=== PATIENT | female | born 1990 | race Caucasian/White ===

== ENCOUNTER → 2019-11-01 | Outpatient (CLI) | payer MEDICAID ==
--- NOTE | 2019-11-02 08:01 | US ---
EXAMINATION TYPE: Transabdominal DATE OF EXAM: 11/01/2019 4:13 PM COMPARISON: NONE CLINICAL HISTORY: Z36 CONFIRM DATES. EXAM PERFORMED: Transabdominal (TA) EXAM MEASUREMENTS: GESTATIONAL AGE / DATING Physician Established: Not yet established Dates by LMP: (12 weeks/4 days) EDC: 05/04/20 Dates by First Scan: No previous this is first scan Dates by Current Scan for: ( 13 weeks/4 days) EDC: 06/08/19 MATERNAL ANATOMY Uterus: 13.6 x 9.8 x 11.4cm Right Ovary: not visualized due to overlying bowel and increased uterine size Left Ovary: not visualized due to overlying bowel and increased uterine size Post CDS / Adnexa: wnl GESTATION / SURVEY CRL: 7.3cm (13 weeks/4 days) Yolk Sac (normal less than 6mm): not seen Heart Rate: 149 bpm Rhythm: Normal IUP: Viable IUP Date of LMP: 08/05/19 IMPRESSION: 1. Single intrauterine gestation estimated at 13 weeks 4 days gestation based on current crown-rump l ength. Cardiac activity measures 149 bpm
== END | disposition home or self-care (01) ==
LOC: RADUSWWP 15:54
PROVIDERS: ATTEND Obstetrics & Gynecology
DX: Z36.9 Encounter for antenatal screening, unspecified (principal); Z3A.13 13 weeks gestation of pregnancy
CPT/HCPCS: 76801

== ENCOUNTER → 2019-11-13 | Outpatient (CLI) | payer MEDICAID ==
[2019-11-13 13:22] LABS: HCT 37.4 % (34.0-46.0); HGB 12.7 gm/dL (11.4-16.0); MCV 94.1 fL (80.0-100.0); Mean Platelet Volume 7.8; Platelet Count 262 k/uL (150-450); RBC 3.97 m/uL (3.80-5.40); RDW 12.7 % (11.5-15.5); WBC 8.1 k/uL (3.8-10.6)
[2019-11-13 20:03] LABS: African American GFR (CKD) 141.8 (60.0-200.0); Non-African American GFR(CKD) 122.3 (60.0-200.0)
[2019-11-13 20:26] LABS: Hepatitis B Surface Antigen Non-Reactive (Non-Reactive)
[2019-11-13 22:26] LABS: HIV 2 AB Non-Reactive (Non-Reactive); HIV AB P24 Non-Reactive (Non-Reactive); HIV P24 AG Non-Reactive (Non-Reactive)
[2019-11-15 05:57] LABS: Toxoplasma Antibody (IgG) <3.0 IU/mL (<7.2); Toxoplasma Antibody (IgM) 5.1 AU/mL (<8.0)
== END | disposition home or self-care (01) ==
LOC: LABWHC1 11:21
PROVIDERS: ATTEND Obstetrics & Gynecology
DX: Z34.81 Encounter for supervision of other normal pregnancy, first trimester (principal)
CPT/HCPCS: 36415; 82565; 82947; 85027; 86762; 86777; 86778; 86780; 86850; 86900; 86901; 87340; 87390

== ENCOUNTER → 2019-12-18 | Outpatient (CLI) | payer MEDICAID ==
--- NOTE | 2019-12-18 12:30 | US ---
EXAMINATION TYPE: US OB anatomy transabd; DATE OF EXAM: 12/18/2019 COMPARISON: US 11/01/2019 HISTORY: O36.62XO large for dates TECHNIQUE: Transabdominal (TA) EXAM MEASUREMENTS: GESTATIONAL AGE / DATING Physician Established: (19 weeks/2 days) EDC: 05/11/2020 Dates by LMP: (19 weeks/2 days) EDC: 05/11/2020 Dates by First Scan: 06/08/2020 Dates by Current Scan for: (19 weeks/0 days) EDC: 05/13/2020 SURVEY IUP: Single PLACENTA: fundal/posterior; venous schwartz is noted inferiorly PREVIA: No previa MIKE: 10.6 cm Normal CERVICAL LENGTH (transabdominal: norm > 3.0cm): 5.7 cm BIOMETRY PRESENTATION: Breech LIE: Oblique BPD: 4.2 cm 18 weeks / 6 days HC: 15.8 cm 18 weeks / 5 days AC: 14.0 cm 19 weeks / 3 days FL: 3.1 cm 19 weeks / 5 days ESTIMATED WEIGHT IN GRAMS: 290.8 grams ESTIMATED WEIGHT IN LBS/OZ: 0 lbs. 10 oz. WEIGHT PERCENTAGE BASED ON ESTABLISHED DATE: 52.7 % HC/AC: 1.13 Normal FL/AC: 22.22 Normal HEART RATE: 143 bpm RHYTHM: Normal ANATOMY SEEN (within normal limits): * Lateral Vent (< 1 cm) 0.5 cm * Cisterna Magna (< 1.1 cm) 0.4 cm * Nuchal Fold (< 0.6 cm) 0.5 cm * Cerebellum (varies with age) 1.9 cm Choroid Plexus (bilateral) Midline Falx Cavus Septi Pellucidi Four Chamber Heart Outflow tracts: LVOT/RVOT Stomach Situs Nose / Lips Diaphragm Kidneys (bilateral) Bladder Cord Insert Three Vessel Cord Longitudinal Spine Transverse Spine Arms (bilateral) Legs (bilateral) IMPRESSION: Single, viable IUP,19 weeks/0 days, EDC: 05/13/2020, [id number].
== END | disposition home or self-care (01) ==
LOC: RADUSWWP 09:35
PROVIDERS: ATTEND Obstetrics & Gynecology
DX: O36.62X0 Maternal care for excessive fetal growth, second trimester, not applicable or unspecified (principal); Z3A.19 19 weeks gestation of pregnancy
CPT/HCPCS: 76811

== ENCOUNTER 2020-01-19 13:16 | Emergency (ER) | payer MEDICAID ==
[2020-01-19 13:28] VITALS: BP 109/69; PULSE 100; RESP 16; TEMP 98.6
--- NOTE | 2020-01-19 13:42 | ED ---
General Adult HPI - General Chief complaint: Dental/Oral Stated complaint: Dental Pain Time Seen by Provider: 01/19/20 13:29 Source: patient Mode of arrival: ambulatory Limitations: no limitations - History of Present Illness Initial comments: Dictation was produced using [employer] dictation software. please excuse any grammatical, word or spelling errors. This patient was cared for during a federal and state declared state of emergency secondary to Covid 19 Chief Complaint: 30-year-old seng presents with dental pain. History of Present Illness: 30-year-old female presents today with dental pain. Patient has been having dental pain for the last 2-3 days. It is involving her first molar mandibular tooth. She has had filling to that tooth in the past. Patient states that pain radiates to her left jaw area. She was urged to come to the emergency department by friends for possibly needing antibiotics. He is 24 weeks . She is having a normal . She does have [employer] follow-up. Patient does have a dentist that she can follow-up with. She has been taking Tylenol with adequate pain relief. The ROS documented in this emergency department record has been reviewed and confirmed by me. Those systems with pertinent positive or negative responses have been documented in the HPI. All other systems are other negative and/or noncontributory. PHYSICAL EXAM: General Impression: Alert and oriented x3, not in acute distress HEENT: Normocephalic atraumatic, extra-ocular movements intact, pupils equal and reactive to light bilaterally, mucous membranes moist. Oral: Tooth #46 with metallic filling, no gingival fluctuance or erythema Cardiovascular: Heart regular rate and rhythm Chest: Able to complete full sentences, no retractions, no tachypnea Abdomen: abdomen soft, non-tender, non-distended, no organomegaly Musculoskeletal: Pulses present and equal in all extremities, no peripheral edema Motor: no focal deficits noted Neurological: CN II-XII grossly intact, no focal motor or sensory deficits noted Skin: Intact with no visualized rashes Psych: Normal affect and mood ED course: 30 Year old seng presents with dental pain to the first molar mandibular tooth on the right side. Signs upon arrival are within acceptable limits. Patient is allegedly 24 weeks . Analgesic options were d iscussed with patient and she is agreeable for continue to take Tylenol. She is concerned that she has dental pain secondary to a dental infection. Patient given prescription for Augmentin. She is advised to follow-up with her dentist as soon as possible. She will make an appointment for next week. - Related Data Previous Rx's Medication Instructions Recorded Amoxic-Pot Clav 875-125Mg 1 tab PO BID 10 Days #20 tab 01/19/20 [Augmentin 875-125] Allergies Allergy/AdvReac Type Severity Reaction Status Date / Time No Known Allergies Allergy Verified 01/19/20 13:28 Review of Systems ROS Statement: Those systems with pertinent positive or pertinent negative responses have been documented in the HPI. ROS Other: All systems not noted in ROS Statement are negative. Past Medical History Past Medical History: No Reported History History of Any Multi-Drug Resistant Organisms: None Reported Past Surgical History: Orthopedic Surgery Past Psychological History: No Psychological Hx Reported Smoking Status: Never smoker Past Alcohol Use History: None Reported Past Drug Use History: None Reported General Exam Limitations: no limitations Course Vital Signs 01/19/20 13:25 Temperature 98.6 F Pulse Rate 100 Respiratory 16 Rate Blood Pressure 109/69 O2 Sat by Pulse 100 Oximetry Disposition Clinical Impression: Pain, dental Disposition: HOME SELF-CARE Condition: Good Instructions (If sedation given, give patient instructions): Toothache (ED) Additional Instructions: Follow-up with dentist as soon as possible. Prescriptions: Amoxic-Pot Clav 875-125Mg [Augmentin 875-125] 1 tab PO BID 10 Days #20 tab Is patient prescribed a controlled substance at d/c from ED?: No Time of Disposition: 13:42
== END 2020-01-19 14:00 | disposition home or self-care (01) ==
LOC: EC 13:16
DX: O99.612 Diseases of the digestive system complicating pregnancy, second trimester (principal); K08.89 Other specified disorders of teeth and supporting structures; Z3A.24 24 weeks gestation of pregnancy
CPT/HCPCS: 99282

== ENCOUNTER → 2020-02-13 | Outpatient (CLI) | payer MEDICAID ==
[2020-02-13 11:03] LABS: HCT 33.3 % (34.0-46.0); MCH 32.1 pg (25.0-35.0); MCV 97.3 fL (80.0-100.0); Mean Platelet Volume 7.4; Platelet Count 254 k/uL (150-450); RBC 3.43 m/uL (3.80-5.40); WBC 9.5 k/uL (3.8-10.6)
== END | disposition home or self-care (01) ==
LOC: LABWHC1 09:06
PROVIDERS: ATTEND Obstetrics & Gynecology
DX: Z34.82 Encounter for supervision of other normal pregnancy, second trimester (principal)
CPT/HCPCS: 36415; 82950; 85027; 86850

== ENCOUNTER → 2020-02-19 | Outpatient (CLI) | payer MEDICAID ==
[2020-02-19 12:42] LABS: Glucose 3 Hour, Gest 105 mg/dL
== END | disposition home or self-care (01) ==
LOC: LABWHC1 08:06
PROVIDERS: ATTEND Obstetrics & Gynecology
DX: O99.810 Abnormal glucose complicating pregnancy (principal)
CPT/HCPCS: 36415; 82951; 82952

== ENCOUNTER 2020-05-11 08:23 | Inpatient (IN) | payer MEDICAID ==
[2020-05-11] MEDS ORDERED: ROPIVACAINE 100 MG, fentaNYL (PF). 200 MCG in SODIUM CHLORIDE 0.9% 76 ML EPIDURAL ONE (09:26)
[2020-05-11] MEDS ORDERED: TERBUTALINE 1 MG/ML VIAL SQ PRN (09:30)
[2020-05-11] MEDS ORDERED: CARBOPROST TROMETHAMINE 250 MCG/ML 1 ML AMP IM PRN (09:30)
[2020-05-11] MEDS ORDERED: OXYTOCIN 30 UNITS/500 ML NS 30 UNIT in SALINE 1 500ML.BAG IV SCH (09:30)
[2020-05-11] MEDS ORDERED: METHYLERGONOVINE 0.2 MG/ML 1 ML AMP IM PRN (09:30)
[2020-05-11] MEDS ORDERED: LIDOCAINE 0.5% (PF) 5 MG/ML (50 ML SDV) SQ PRN (09:30)
[2020-05-11] MEDS ORDERED: OXYTOCIN 10 UNIT/ML 1 ML VIAL IM PRN (09:30)
--- NOTE | 2020-05-11 09:36 | P.HPOB ---
History of Present Illness H&P Date: 05/11/20 Chief Complaint: Leaking of fluid, contractions This patient is a pleasant 30-year-old 3 para 1 female estimated date of confinement 05/11/2020 estimated gestational age 40-0/7 weeks presents to labor and delivery with complaints of leaking of fluid this morning and contractions. Patient's care is per Dr. Arias. It is complicated by a recent positive COVID respiratory culture. Patient states she was having some respiratory symptoms and fever middle the last week and was tested at work and found to have a positive Covid test. Patient is still having some low-grade temps but otherwise is feeling better. 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 Review of Systems Respiratory: Reports as per HPI Genitourinary: Reports Menstruation: Reports amenorrhea Past Medical History Additional Past Medical History / Comment(s): Positive COVID Respiratory screen on May 05 History of Any Multi-Drug Resistant Organisms: None Reported Past Surgical History: Orthopedic Surgery Past Anesthesia/Blood Transfusion Reactions: No Reported Reaction Past Psychological History: No Psychological Hx Reported Smoking Status: Never smoker Past Alcohol Use History: None Reported Past Drug Use History: None Reported Medications and Allergies Home Medications Medication Instructions Recorded Confirmed Type Amoxic-Pot Clav 875-125Mg 1 tab PO BID 10 Days #20 tab 01/19/20 Rx [Augmentin 875-125] Allergies Allergy/AdvReac Type Severity Reaction Status Date / Time No Known Allergies Allergy Verified 01/19/20 13:28 Exam - OBG Physical Exam Abdomen: bowel sounds normal, no diffuse tenderness, no bruit present, no guarding noted, no hepatomegaly, no splenomegaly, no mass Vulva: both: normal Vagina: normal moisture, no discharge Cervix: Cervix shows a to be 5 cm dilated with gross rupture membranes. Cervix: no lesion, no discharge Uterus: enlarged Results blood work shows she is O-, rubella immune, RPR nonreactive, HIV is nonreactive, group B strep was negative, hepatitis B was negative, most recent ultrasound showed the baby 6 pounds which is the 69th percentile. Patient did receive RhoGAM on February 18. Assessment and Plan Assessment: This is a pleasant 30-year-old 3 para 1 female 40-0/7 weeks gestation with spontaneous rupture membranes in early labor. Patient also has had a recent positive respiratory Covid culture. Plan at this time is anticipate vaginal delivery. Respiratory precautions per protocol. I also alerted the sole inker due to the recent positive Covid screen. (1) 40 weeks gestation of Current Visit: Yes Status: Acute Code(s): Z3A.40 - 40 WEEKS GESTATION OF SNOMED Code(s): 75706736 (2) Spontaneous rupture of amniotic membranes Current Visit: Yes Status: Acute Code(s): TWB4005 - SNOMED Code(s): 138010224 (3) Normal labor Current Visit: Yes Status: Acute Code(s): O80 - ENCOUNTER FOR FULL-TERM UNCOMPLICATED DELIVERY; Z37.9 - OUTCOME OF DELIVERY, UNSPECIFIED SNOMED Code(s): 76942408 (4) COVID-19 affecting in third trimester Current Visit: Yes Status: Acute Code(s): O98.513 - OTHER VIRAL DISEASES COMPLICATING , THIRD TRIMESTER; U07.1 - COVID-19 SNOMED Code(s): 396909384
[2020-05-11 09:41] LABS: Basophils # (A) 0.1 k/uL (0-0.2); Basophils % (A) 1 %; Eosinophils # (A) 0.1 k/uL (0-0.7); Eosinophils % (A) 1 %; HCT 33.3 % (34.0-46.0); Lymphocytes # (A) 1.5 k/uL (1.0-4.8); Lymphocytes % (A) 15 %; MCH 28.9 pg (25.0-35.0); MCHC 33.1 g/dL (31.0-37.0); MCV 87.2 fL (80.0-100.0); Mean Platelet Volume 7.6; Monocytes # (A) 0.5 k/uL (0-1.0); Monocytes % (A) 5 %; Neutrophils # (A) 7.7 k/uL (1.3-7.7); Neutrophils % (A) 77 %; Platelet Count 287 k/uL (150-450); RBC 3.82 m/uL (3.80-5.40); RDW 13.3 % (11.5-15.5)
[2020-05-11] MEDS: LACTATED RINGERS 1,000 ML IV SCH ×2 (10:50→10:51)
[2020-05-11] MEDS ORDERED: AMPICILLIN 2,000 MG in SODIUM CHLORIDE 0.9% 100 ML IVPB STA (11:11)
[2020-05-11] MEDS ORDERED: ACETAMINOPHEN IV (For NPO) 1,000 MG in EMPTY BAG 1 BAG IVPB STA (11:38)
--- NOTE | 2020-05-11 11:41 | P.PN ---
Progress Note - Text Progress Note Date: 05/11/20 Patient is 7-8cm dilated. FHTs are reassuring but mild tachycardia with good variability. Has developed a low grade temp so I am going to treat with IV Ampicillin and IV Tylenol. Continue to watch closely and anticipate vaginal delivery at this time.
[2020-05-11] MEDS ORDERED: HYDROCORTISONE 2.5% RECTAL CREAM 30 GM TUBE RECTAL PRN (13:33)
[2020-05-11] MEDS ORDERED: diphenhydrAMINE 25 MG CAP PO PRN (13:33)
[2020-05-11] MEDS ORDERED: LANOLIN CREAM 5 GM TUBE TOPICAL PRN (13:33)
[2020-05-11] MEDS ORDERED: BENZOCAINE/MENTHOL SPRAY 1 GM/SPRAY AEROSOL TOPICAL PRN (13:33)
[2020-05-11] MEDS ORDERED: SIMETHICONE 80 MG CHEWABLE PO PRN (13:33)
[2020-05-11] MEDS ORDERED: bisacodyL 10 MG SUPP RECTAL PRN (13:33)
[2020-05-11] MEDS ORDERED: ZOLPIDEM 5 MG TAB PO PRN (13:33)
[2020-05-11] MEDS ORDERED: diphenhydrAMINE 50 MG/ML 1 ML VIAL IVP PRN (13:33)
[2020-05-11] MEDS ORDERED: Rhogam IMMUNE GLOBULIN 1,500 UNIT/1 ML IM ONE (13:33)
[2020-05-11] MEDS ORDERED: OXYTOCIN 20 UNITS/1000 ML NS 1,000 ML IV SCH (13:45)
--- NOTE | 2020-05-11 13:46 | P.PROBDLV ---
Vaginal Delivery Note - . Vaginal Delivery Note: Normal female Apgars 7 and 9 delivery time is 1311 hrs. Please see dictated H&P for intimate details of this patient's admission. Brief summary this is a pleasant 30-year-old 3 para 1 female estimated gestational age 40-0/7 weeks who presented this morning with complaints of gush of fluid and contractions. On admission patient's cervix is 5 cm dilated. Patient's heart tones are category 1 although she does have an elevated a slightly elevated baseline. Patient's labor progresses, she does develop an intrapartum low-grade temperature. At that time I give her 1 dose of ampicillin and also IV Tylenol. Patient gets an epidural for pain control and does continue to progress quickly. Patient gets to complete and pushes a proximally 3 times and pushes the head to the perineum. Posterior perineum is supported and we have controlled delivery of the 's head over the intact perineum. Infant's presentation is straight occiput anterior. Mouth and nares are bulb suctioned. There is no evidence of nuchal cord. With gentle downward traction and maternal effort we have delivery the anterior and posterior shoulder and rest this 's body. This is a vigorous viable female infant Apgars are 7 and 9 delivery time is 1311 hrs. grossly appears normal and weighs 9 lbs. 10 oz./4360 g. Infant is laid on the mother's abdomen and after the cord is done pulsated is doubly clamped and cut. It appears to be trivascul ar. Cord blood is obtained for Rh status. Placenta spontaneously delivered intact. Estimated blood loss is 100 mL. Inspection of perineum shows a first- degree posterior laceration which is repaired with 3-0 Vicryl in the usual fashion. Excellent reapproximation is noted. All counts correct 3. There are no complications. Infant and mother stable birthing suite.
[2020-05-11] MEDS: ACETAMINOPHEN TAB 325 MG TAB PO PRN (16:37)
[2020-05-11] MEDS: SENNOSIDES-DOCUSATE SODIUM 1 EACH TAB PO SCH (20:03)
[2020-05-11] MEDS: IBUPROFEN 600 MG TAB PO PRN (20:11)
[2020-05-12] MEDS: ACETAMINOPHEN TAB 325 MG TAB PO PRN (02:13)
[2020-05-12 06:25] LABS: Basophils # (A) 0.1 k/uL (0-0.2); Basophils % (A) 1 %; Eosinophils % (A) 0 %; HCT 31.6 % (34.0-46.0); HGB 10.5 gm/dL (11.4-16.0); Hypochromasia Slight; Lymphocytes # (A) 1.7 k/uL (1.0-4.8); Lymphocytes % (A) 15 %; MCH 29.4 pg (25.0-35.0); MCHC 33.3 g/dL (31.0-37.0); MCV 88.3 fL (80.0-100.0); Mean Platelet Volume 7.5; Monocytes # (A) 0.6 k/uL (0-1.0); Monocytes % (A) 5 %; Neutrophils # (A) 8.7 k/uL (1.3-7.7); Neutrophils % (A) 78 %; Platelet Count 234 k/uL (150-450); RBC 3.58 m/uL (3.80-5.40); RDW 13.2 % (11.5-15.5); WBC 11.2 k/uL (3.8-10.6)
[2020-05-12] MEDS: IBUPROFEN 600 MG TAB PO PRN (07:28)
[2020-05-12 07:40] VITALS: BP 108/61; PULSE 78; RESP 15; TEMP 98.1
[2020-05-12] MEDS: SENNOSIDES-DOCUSATE SODIUM 1 EACH TAB PO SCH (07:42)
--- NOTE | 2020-05-12 17:14 | P.DS ---
Providers Date of admission: 05/11/20 08:36 Expected date of discharge: 05/12/20 Attending physician: Reilly Austin - Discharge Diagnosis(es) (1) Normal vaginal delivery Status: Acute Hospital Course: Pt presented in labor. She underwent a normal vaginal delivery. course was uncomplicated. She is discharged home day #1 in stable condition to follow-up with me in 6 weeks. Plan - Discharge Summary New Discharge Prescriptions: No Action No Known Home Medications Discharge Medication List No Known Home Medications 05/11/20 [History] Discharge Disposition: HOME SELF-CARE
== END 2020-05-12 16:07 | disposition home or self-care (01) | DRG 805 ==
LOC: FBPOP 08:23 → 4FBP 08:36
PROVIDERS: ADMIT Obstetrics & Gynecology; ATTEND Obstetrics & Gynecology
PROC: 00HU33Z Insertion of Infusion Device into Spinal Canal, Percutaneous Approach (ICD-10-PCS; principal; 2020-05-11)
PROC: 10E0XZZ Delivery of Products of Conception, External Approach (ICD-10-PCS; principal; 2020-05-11)
PROC: 3E0R3BZ Introduction of Anesthetic Agent into Spinal Canal, Percutaneous Approach (ICD-10-PCS; principal; 2020-05-11)
PROC: 0HQ9XZZ Repair Perineum Skin, External Approach (ICD-10-PCS; principal; 2020-05-11)
PROC: 3E0234Z Introduction of Serum, Toxoid and Vaccine into Muscle, Percutaneous Approach (ICD-10-PCS; 2020-05-11)
DX: O98.52 Other viral diseases complicating childbirth (principal); U07.1 COVID-19; Z37.0 Single live birth; O98.32 Other infections with a predominantly sexual mode of transmission complicating childbirth; A60.00 Herpesviral infection of urogenital system, unspecified; O70.0 First degree perineal laceration during delivery; O26.893 Other specified pregnancy related conditions, third trimester; Z67.41 Type O blood, Rh negative; Z3A.40 40 weeks gestation of pregnancy; Z87.39 Personal history of other diseases of the musculoskeletal system and connective tissue; Z98.890 Other specified postprocedural states
CPT/HCPCS: 85025; 86850; 86870; 86880; 86900; 86901; 88307

== ENCOUNTER 2022-01-17 11:04 | Emergency (ER) | payer MEDICAID, OTHER ==
[2022-01-17 11:23] LABS: Glucose,Whole Blood 85 mg/dL (70-110)
[2022-01-17] MEDS ORDERED: LIDOCAINE 1% INJ 10MG/ML (20 ML MDV) SQ ONE (11:44)
[2022-01-17] MEDS ORDERED: DIPH,PERTUS(ACELL)TETVAC-LF 0.5 ML VIAL IM ONE (11:45)
[2022-01-17] MEDS ORDERED: ACETAMINOPHEN TAB 500 MG TAB PO STA (11:48)
[2022-01-17] MEDS ORDERED: SODIUM CHLORIDE 0.9% 1,000 ML IV STA (11:48)
[2022-01-17 11:59] LABS: Basophils % (A) 0 %; Eosinophils # (A) 0.1 k/uL (0-0.7); Eosinophils % (A) 1 %; HCT 36.3 % (34.0-46.0); HGB 12.2 gm/dL (11.4-16.0); Lymphocytes % (A) 23 %; MCH 30.6 pg (25.0-35.0); MCHC 33.6 g/dL (31.0-37.0); Mean Platelet Volume 7.7; Monocytes # (A) 0.4 k/uL (0-1.0); Monocytes % (A) 5 %; Neutrophils # (A) 5.9 k/uL (1.3-7.7); Neutrophils % (A) 69 %; Platelet Count 278 k/uL (150-450); RBC 3.99 m/uL (3.80-5.40); WBC 8.6 k/uL (3.8-10.6)
--- NOTE | 2022-01-17 12:04 | XR ---
EXAMINATION TYPE: XR chest 2V DATE OF EXAM: 01/17/2022 12:01 PM COMPARISON: none TECHNIQUE: XR chest 2V Frontal and lateral views of the chest. CLINICAL INDICATION:Female, 32 years old with history of syncope; FINDINGS: Lungs/Pleura: There is no evidence of pleural effusion, focal consolidation, or pneumothorax. Pulmonary vascularity: Unremarkable. Heart/mediastinum: Cardiomediastinal silhouette is unremarkable. Musculoskeletal: No acute osseous pathology. IMPRESSION: No acute cardiopulmonary disease/process.
[2022-01-17 12:10] LABS: ALT 11 U/L (4-34); AST 21 U/L (14-36); African American GFR (CKD) >90 (>60 ml/min/1.73 sqM); Albumin 3.5 g/dL (3.5-5.0); Alkaline Phosphatase 51 U/L (38-126); Anion Gap 8 mmol/L; Blood Urea Nitrogen 8 mg/dL (7-17); Calcium 8.6 mg/dL (8.4-10.2); Carbon Dioxide 21 mmol/L (22-30); Chloride 104 mmol/L (98-107); Glucose 94 mg/dL (74-99); Magnesium 1.6 mg/dL (1.6-2.3); Non-African American GFR(CKD) >90 (>60 ml/min/1.73 sqM); Potassium 4.3 mmol/L (3.5-5.1); Sodium 133 mmol/L (137-145); Total Bilirubin 0.3 mg/dL (0.2-1.3); Total Protein 6.1 g/dL (6.3-8.2)
--- NOTE | 2022-01-17 12:32 | CT ---
EXAMINATION TYPE: CT brain cspine wo con CT DLP: 1303.3 mGycm, Automated exposure control for dose reduction was used. DATE OF EXAM: 01/17/2022 12:19 PM COMPARISON: None.. CLINICAL INDICATION:Female, 32 years old with history of syncope; fall TECHNIQUE: Brain: Multiple axial CT images of the brain were obtained without IV contrast. Cspine: Axial CT images from the skull base to the inferior aspect of T2 we obtained without intraven ous contrast. Coronal and sagittal reformatted images were also reviewed. FINDINGS: Brain: Extra-axial spaces: No abnormal extra-axial fluid collections. Ventricular system: Within normal limits Cerebral parenchyma: No acute intraparenchymal hemorrhage or mass effect. The galo-white junction is well differentiated. Cerebellum: Unremarkable. Mass effect: No evidence of midline shift. Intracranial vasculature: unremarkable Soft tissues: Normal. Calvarium/osseous structures: No depressed skull fracture. Paranasal sinuses and mastoid air cells: Clear. Visualized orbits: Orbital contents are intact. Cervical spine: Fracture: None. Osseous structures: Unremarkable Vertebral alignment: Within normal limits. Spinal canal/Neural Foramina: No evidence of significant spinal canal narrowing. No evidence for sign ificant neural foraminal stenosis. Neck soft tissues: Prevertebral soft tissues are within normal limits. Other: The airway is patent. The lung apices are clear. IMPRESSION: 1. No acute intracranial process. 2. No evidence of cervical spine fracture.
[2022-01-17 13:06] LABS: Appearance,Urine Cloudy (Clear); Bilirubin,Urine Negative (Negative); Blood,Urine Negative (Negative); Color,Urine Yellow; Glucose,Urine (UA) Negative (Negative); Ketones,Urine Negative (Negative); Leukocyte Esterase,Urine Moderate (Negative); Mucus,Urine Occasional /hpf; Nitrite,Urine Negative (Negative); Protein,Urine Trace (Negative); RBC,Urine 2 /hpf (0-5); Specific Gravity,Urine 1.017 (1.001-1.035); Squamous Epithelial Cell,Urine 17 /hpf (0-4); Urobilinogen,Urine <2.0 mg/dL (<2.0); WBC,Urine 6 /hpf (0-5)
--- NOTE | 2022-01-17 13:29 | US ---
EXAMINATION TYPE: US OB >= 14 wk fetus DATE OF EXAM: 01/17/2022 COMPARISON: US 2021 CLINICAL HISTORY: syncope TECHNIQUE: Transabdominal (TA) GESTATIONAL AGE / DATING Physician Established: (17 weeks/2 days) EDC: 06/25/2022 Dates by LMP: LMP unknown Dates by First Scan: (17 weeks/2 days) EDC: 06/25/2022 Dates by Current Scan: (17 weeks/0 days) EDC: 06/27/2022 SURVEY IUP: Single PLACENTA: Fundal/Posterior PREVIA: No Previa MIKE: 10.1 cm Normal CERVICAL LENGTH (transabdominal: norm > 3.0cm): 3.5 cm BIOMETRY PRESENTATION: Vertex LIE: Longitudinal BPD: 3.3 cm 16 weeks / 3 days HC: 12.9 cm 16 weeks / 5 days AC: 10.4 cm 16 weeks / 3 days FL: 2.7 cm 18 weeks / 2 days ESTIMATED WEIGHT IN GRAMS: 184 grams ESTIMATED WEIGHT IN LBS/OZ: 0 lbs. 6 oz. WEIGHT PERCENTAGE BASED ON ESTABLISHED DATES: 36% HC/AC: 1.24 Normal FL/AC: 26% HEART RATE: 156 bpm RHYTHM: Normal IMPRESSION: Single live intrauterine with ultrasound age of 17 weeks 0 days. Additional information as described above.
--- NOTE | 2022-01-17 13:38 | ED ---
Fall HPI - General Chief Complaint: Fall Stated Complaint: fall-syncope Time Seen by Provider: 01/17/22 11:35 Source: patient, EMS Mode of arrival: EMS - History of Present Illness Initial Comments: Patient is a 32-year-old female at 17 weeks with a past medical history of hypoglycemia who presents to the emergency department with a chief complaint of syncopal episode. Patient was at [employer] today with her friends when she began to feel lightheaded with headache. Patient had syncopal episode and fell onto her chin in the parking lot. The fall was witnessed by patient's friends. She was unconscious for about 45 seconds. Does not use blood thinners. No history of syncope, seizures, or arrhythmia. Currently patient endorses moderate headache in the front of her head as well as chin pain from fall. Does note that she has been having frequent headaches this week to arrange for moderate to severe. No history of migraines. Denies other injury. Denies fever, chills, upper respiratory symptoms, visual changes, lightheadedness, dizziness, palpitation, chest pain, shortness of breath, abdominal pain, nausea, vomiting, burning with urination, vaginal bleeding, vaginal discharge. Patient follows with Dr. Arias. Reports having previous ultrasound for this which showed a viable IUP. - Related Data Home Medications Medication Instructions Recorded Confirmed No Known Home Medications 05/11/20 05/11/20 Allergies Allergy/AdvReac Type Severity Reaction Status Date / Time latex Allergy Rash/Hives Verified 01/17/22 11:13 Review of Systems ROS Statement: Those systems with pertinent positive or pertinent negative responses have been documented in the HPI. ROS Other: All systems not noted in ROS Statement are negative. Past Medical History Past Medical History: No Reported History Additional Past Medical History / Comment(s): Positive COVID Respiratory screen on May 05 History of Any Multi-Drug Resistant Organisms: None Reported Past Surgical History: Orthopedic Surgery Past Anesthesia/Blood Transfusion Reactions: No Reported Reaction Past Psychological History: Anxiety Smoking Status: Never smoker Past Alcohol Use History: None Reported Past Drug Use History: None Reported - Past Family History Mother Family Medical History: Cancer General Exam Limitations: no limitations Head exam: Present: atraumatic, normocephalic. Absent: normal inspection (2 cm v shaped laceration under chin) Eye exam: Present: normal appearance, PERRL, EOMI. Absent: scleral icterus, conjunctival injection, periorbital swelling Neck exam: Present: normal inspection, tenderness. Absent: meningismus, lymphadenopathy Respiratory exam: Present: normal lung sounds bilaterally. Absent: respiratory distress, wheezes, rales, rhonchi, stridor GI/Abdominal exam: Present: soft, normal bowel sounds. Absent: distended, tenderness, guarding, rebound, rigid Neurological exam: Present: alert, oriented X3, CN II-XII intact Psychiatric exam: Present: normal affect, normal mood Skin exam: Present: warm, dry, intact, normal color. Absent: rash Course Vital Signs 01/17/22 01/17/22 01/17/22 11:07 12:29 12:31 Temperature 98.4 F Pulse Rate 82 Pulse Rate [ 97 100 Right Pulse Oximetery] Respiratory 16 16 17 Rate Blood Pressure 99/66 Blood Pressure 97/63 [Left Arm Sitting] Blood Pressure [Left Arm Standing] Blood Pressure 96/62 [Left Arm Supine] O2 Sat by Pulse 100 100 99 Oximetry 01/17/22 01/17/22 01/17/22 12:32 12:46 13:00 Temperature Pulse Rate 99 100 Pulse Rate [ 108 H Right Pulse Oximetery] Respiratory 16 16 16 Rate Blood Pressure 103/55 98/66 Blood Pressure [Left Arm Sitting] Blood Pressure 90/62 [Left Arm Standing] Blood Pressure [Left Arm Supine] O2 Sat by Pulse 100 100 100 Oximetry 01/17/22 01/17/22 14:00 15:09 Temperature 98.2 F Pulse Rate 105 H 98 Pulse Rate [ Right Pulse Oximetery] Respiratory 17 16 Rate Blood Pressure 108/71 103/64 Blood Pressure [Left Arm Sitting] Blood Pressure [Left Arm Standing] Blood Pressure [Left Arm Supine] O2 Sat by Pulse 100 100 Oximetry Procedures - Laceration Laceration #1 Consent Obtained: verbal consent Site: other (chin) Description: flap Depth: simple, single layer Anesthesia Technique: local infiltration Pre-repair: wound explored, irrigated extensively Type of Sutures: nylon Size of Sutures: 5-0 Number of Sutures: 3 Technique: simple, interrupted Patient Tolerated Procedure: well, no complications Medical Decision Making - Medical Decision Making This is a female who presents for evaluation of syncopal episode. Patient well-appearing and in no apparent distress. Patient's blood pressure tends to run low normally but is a little lower than her normal at 90/62. Orthostatics negative. Patient and I discussed risks versus benefits of radiation exposure during in detail. After careful consideration decided to rule out aneurysm and bleed with CT angiogram. This was negative for acute process. We also obtained chest x-ray to explore etiologies syncopal episode which was negative for acute process. EKG shows sinus rhythm without ST segment or T-wave abnormality. ultrasound shows single live IUP. [id number] glucose is 85 on arrival however patient was eating ben crackers and fever. Laboratory studies obtained. Glucose 94. Troponin is within normal limits. Other laboratory studies are unremarkable. Patient given Tylenol with improvement of headache. Results discussed with patient. This time there are no diagnostic studies to explain patient's symptoms. Possibly low blood sugar. Laceration approximately with 3 sutures. Wound care instruction provided in detail. Patient will be discharged with strict return parameters. Dr. Phelan my attending. - Lab Data Result diagrams: 01/17/22 11:49 01/17/22 11:49 Lab Results 01/17/22 01/17/22 01/17/22 Range/Units 11:22 11:49 11:49 WBC 8.6 (3.8-10.6) k/uL RBC 3.99 (3.80-5.40) m/uL Hgb 12.2 (11.4-16.0) gm/dL Hct 36.3 (34.0-46.0) % MCV 91.0 (80.0-100.0) fL MCH 30.6 (25.0-35.0) pg MCHC 33.6 (31.0-37.0) g/dL RDW 13.0 (11.5-15.5) % Plt Count 278 (150-450) k/uL MPV 7.7 Neutrophils % 69 % Lymphocytes % 23 % Monocytes % 5 % Eosinophils % 1 % Basophils % 0 % Neutrophils # 5.9 (1.3-7.7) k/uL Lymphocytes # 2.0 (1.0-4.8) k/uL Monocytes # 0.4 (0-1.0) k/uL Eosinophils # 0.1 (0-0.7) k/uL Basophils # 0.0 (0-0.2) k/uL Sodium 133 L (137-145) mmol/L Potassium 4.3 (3.5-5.1) mmol/L Chloride 104 (98-107) mmol/L Carbon Dioxide 21 L (22-30) mmol/L Anion Gap 8 mmol/L BUN 8 (7-17) mg/dL Creatinine 0.53 (0.52-1.04) mg/dL Est GFR (CKD-EPI)AfAm >90 (>60 ml/min/1.73 sqM) Est GFR (CKD-EPI)NonAf >90 (>60 ml/min/1.73 sqM) Glucose 94 (74-99) mg/dL POC Glucose (mg/dL) 85 (70-110) mg/dL POC Glu Almond Roaster ID Monica Linda Calcium 8.6 (8.4-10.2) mg/dL Magnesium 1.6 (1.6-2.3) mg/dL Total Bilirubin 0.3 (0.2-1.3) mg/dL AST 21 (14-36) U/L ALT 11 (4-34) U/L Alkaline Phosphatase 51 (38-126) U/L Troponin I (0.000-0.034) ng/mL Total Protein 6.1 L (6.3-8.2) g/dL Albumin 3.5 (3.5-5.0) g/dL Urine Color Urine Appearance (Clear) Urine pH (5.0-8.0) Ur Specific [place] (1.001-1.035) Urine Protein (Negative) Urine Glucose (UA) (Negative) Urine Ketones (Negative) Urine Blood (Negative) Urine Nitrite (Negative) Urine Bilirubin (Negative) Urine Urobilinogen (<2.0) mg/dL Ur Leukocyte Esterase (Negative) Urine RBC (0-5) /hpf Urine WBC (0-5) /hpf Ur Squamous Epith Cells (0-4) /hpf Urine Mucus (None) /hpf 01/17/22 01/17/22 Range/Units 11:49 12:45 WBC (3.8-10.6) k/uL RBC (3.80-5.40) m/uL Hgb (11.4-16.0) gm/dL Hct (34.0-46.0) % MCV (80.0-100.0) fL MCH (25.0-35.0) pg MCHC (31.0-37.0) g/dL RDW (11.5-15.5) % Plt Count (150-450) k/uL MPV Neutrophils % % Lymphocytes % % Monocytes % % Eosinophils % % Basophils % % Neutrophils # (1.3-7.7) k/uL Lymphocytes # (1.0-4.8) k/uL Monocytes # (0-1.0) k/uL Eosinophils # (0-0.7) k/uL Basophils # (0-0.2) k/uL Sodium (137-145) mmol/L Potassium (3.5-5.1) mmol/L Chloride (98-107) mmol/L Carbon Dioxide (22-30) mmol/L Anion Gap mmol/L BUN (7-17) mg/dL Creatinine (0.52-1.04) mg/dL Est GFR (CKD-EPI)AfAm (>60 ml/min/1.73 sqM) Est GFR (CKD-EPI)NonAf (>60 ml/min/1.73 sqM) Glucose (74-99) mg/dL POC Glucose (mg/dL) (70-110) mg/dL POC Glu Almond Roaster ID Calcium (8.4-10.2) mg/dL Magnesium (1.6-2.3) mg/dL Total Bilirubin (0.2-1.3) mg/dL AST (14-36) U/L ALT (4-34) U/L Alkaline Phosphatase (38-126) U/L Troponin I <0.012 (0.000-0.034) ng/mL Total Protein (6.3-8.2) g/dL Albumin (3.5-5.0) g/dL Urine Color Yellow Urine Appearance Cloudy H (Clear) Urine pH 7.0 (5.0-8.0) Ur Specific [place] 1.017 (1.001-1.035) Urine Protein Trace H (Negative) Urine Glucose (UA) Negative (Negative) Urine Ketones Negative (Negative) Urine Blood Negative (Negative) Urine Nitrite Negative (Negative) Urine Bilirubin Negative (Negative) Urine Urobilinogen <2.0 (<2.0) mg/dL Ur Leukocyte Esterase Moderate H (Negative) Urine RBC 2 (0-5) /hpf Urine WBC 6 H (0-5) /hpf Ur Squamous Epith Cells 17 H (0-4) /hpf Urine Mucus Occasional H (None) /hpf Disposition Clinical Impression: Syncope and collapse, Laceration, Headache, Lightheadedness Disposition: HOME SELF-CARE Condition: Good Instructions (If sedation given, give patient instructions): Care For Your Stitches (DC), Laceration (ED) Additional Instructions: Please return for suture removal in 5 days. Leave wound uncovered. Keep wound clean and dry. Wash with a mild soap. Take Tylenol for pain. Follow up with primary care provider. Report back to the emergency department if you experience new, concerning, or worsening symptoms. Is patient prescribed a controlled substance at d/c from ED?: No Referrals: Olegario Ramirez DO [Primary Care Provider] - 1-2 days Time of Disposition: 13:38
[2022-01-17] MEDS ORDERED: RX INFO: IV CONTRAST WAS GIVEN 1 EACH MISC MISCELLANE PRN (13:42)
--- NOTE | 2022-01-17 15:12 | CT ---
EXAMINATION TYPE: CT angio COW [place] DATE OF EXAM: 01/17/2022 COMPARISON: None HISTORY: headache, no head injury CT DLP: 681.6 mGycm Automated exposure control for dose reduction was used. CONTRAST: Performed with IV Contrast, patient injected with 100 mL of Isovue 370. Images obtained from the skull base to the vertex of the brain with the IV contrast. There are Three- D postprocessed images. There is arterial flow in the anterior middle and posterior cerebral arteries bilaterally. No mass ef fect. No evidence of intracranial aneurysm or neovascularity. No evidence of hemodynamic stenosis. There is normal enhancement of the venous sinuses. There is arterial flow in the vertebral basilar ar josé miguel system. There is arterial flow in the distal vertebral and distal internal carotid arteries bila terally. The right posterior cerebral artery appears to fill significantly through the right posterio r communicating artery. IMPRESSION: Negative CT angiogram of the brain.
[2022-01-17 15:32] VITALS: BP 103/64; PULSE 98; RESP 16; TEMP 98.2
== END 2022-01-17 15:41 | disposition home or self-care (01) ==
LOC: EC 11:04
DX: S01.81XA Laceration without foreign body of other part of head, initial encounter (principal); R55 Syncope and collapse; R51.9 Headache, unspecified; Z23 Encounter for immunization; Z91.040 Latex allergy status; W19.XXXA Unspecified fall, initial encounter
CPT/HCPCS: 12011; 99284; 90471; 96360; 36415; 93005; 80053; 83735; 84484; 85025; 81001; 71046; 76805; 72125; 70496; 70450; 90715; J2001; Q9967

== ENCOUNTER → 2022-01-21 | Outpatient (CLI) | payer MEDICAID, OTHER ==
--- NOTE | 2022-01-21 13:45 | XR ---
EXAMINATION TYPE: XR mandible complete DATE OF EXAM: 01/21/2022 COMPARISON: CT brain and cervical spine January 17, 2022 HISTORY: Recent fall injury with right-sided jaw pain. TECHNIQUE: Complete mandible with both oblique along with open and closed mouth frontal and true late ral views. FINDINGS: No acute displaced fracture is evident in the mandible. There are cavitary fillings involvi ng the right and left maxillary and mandibular teeth redemonstrated. The temporomandibular joints are maintained bilaterally. Overlying soft tissue is unremarkable. IMPRESSION: As above.
== END | disposition home or self-care (01) ==
LOC: RADXRMAIN 12:36
PROVIDERS: ATTEND Family Medicine
DX: R68.84 Jaw pain (principal)
CPT/HCPCS: 70110

== ENCOUNTER → 2022-02-09 | Outpatient (CLI) | payer MEDICAID, OTHER ==
--- NOTE | 2022-02-09 22:08 | US ---
EXAMINATION TYPE: US OB anatomy transabd DATE OF EXAM: 02/09/2022 COMPARISON: US HISTORY: O36.62X0 MATERNAL CARE FOR EXCESS GROWTH, SE Anatomy. . TECHNIQUE: Transabdominal (TA) EXAM MEASUREMENTS: GESTATIONAL AGE / DATING Physician Established: (20 weeks/4 days) EDC: 06/25/2022 Dates by LMP: Unknown Dates by First Scan: (20 weeks/4 days) EDC: 06/25/2022 Dates by Current Scan for: (19 weeks/4 days) EDC: 07/02/2022 SURVEY IUP: Single PLACENTA: Posterior PREVIA: No previa MIKE: 12.10 cm Normal CERVICAL LENGTH (transabdominal: norm > 3.0cm): 3.9 cm BIOMETRY PRESENTATION: Transverse LIE: Transverse lie with head maternal L BPD: 4.2 cm 18 weeks / 6 days HC: 16.3 cm 19 weeks / 1 day AC: 14.7 cm 20 weeks / 0 days FL: 3.2 cm 20 weeks / 0 days ESTIMATED WEIGHT IN GRAMS: 316 grams ESTIMATED WEIGHT IN LBS/OZ: 0 lbs. 11 oz. WEIGHT PERCENTAGE BASED ON ESTABLISHED DATE: 13 % HC/AC: 1.11 Normal FL/AC: 22% HEART RATE: 138 bpm RHYTHM: Normal ANATOMY SEEN (within normal limits): * Lateral Vent (< 1 cm) 0.46 cm * Cisterna Magna (< 1.1 cm) 0.50 cm * Nuchal Fold (< 0.6 cm) 0.21 cm * Cerebellum (varies with age) 1.91 cm Choroid Plexus (bilateral) Midline Falx Cavus Septi Pellucidi Four Chamber Heart Outflow tracts: LVOT/RVOT Stomach Situs Nose / Lips Diaphragm Kidneys (bilateral) Bladder Cord Insert Three Vessel Cord Longitudinal Spine Transverse Spine Arms (bilateral) Legs (bilateral) Female gender. IMPRESSION: Single live intrauterine gestation with ultrasound age of 19 weeks 4 days, additional information as described above.
== END | disposition home or self-care (01) ==
LOC: RADUSWWP 14:33
PROVIDERS: ATTEND Obstetrics & Gynecology
DX: O36.62X0 Maternal care for excessive fetal growth, second trimester, not applicable or unspecified (principal); Z3A.00 Weeks of gestation of pregnancy not specified
CPT/HCPCS: 76811

== ENCOUNTER → 2022-03-02 | Outpatient (CLI) | payer MEDICAID, OTHER ==
[2022-03-02 14:29] LABS: HCT 32.7 % (37.2-46.3); HGB 10.5 g/dL (12.0-15.0); MCH 29.6 pg (27.0-32.0); MCHC 32.1 g/dL (32.0-37.0); MCV 92.1 fL (80.0-97.0); Mean Platelet Volume 10.5 fL (9.5-12.2); NRBC Per 100 WBC 0 /100 WBCS (0.0-0.0); Platelet Count 305 X 10*3/uL (140-440); RBC 3.55 X 10*6/uL (4.10-5.20); WBC 9.31 X 10*3/uL (4.50-10.00)
== END | disposition home or self-care (01) ==
LOC: LABWHC1 07:30
PROVIDERS: ATTEND Obstetrics & Gynecology
DX: Z34.82 Encounter for supervision of other normal pregnancy, second trimester (principal); Z3A.00 Weeks of gestation of pregnancy not specified
CPT/HCPCS: 36415; 82950; 85027; 86850

== ENCOUNTER → 2022-05-25 | Outpatient (CLI) | payer OTHER ==
--- NOTE | 2022-05-25 18:21 | US ---
EXAMINATION TYPE: US OB >= 14 wk fetus DATE OF EXAM: 05/25/2022 COMPARISON: 01/17/2022 CLINICAL HISTORY: 32-year-old female O36.63X0 Large for dates. . TECHNIQUE: Transabdominal (TA) FINDINGS: GESTATIONAL AGE / DATING Physician Established: (35weeks/4 days) EDC: 06/25/2022 Dates by LMP: Unknown Dates by First Scan: (35weeks/4 days) EDC: 06/25/2022 Dates by Current Scan: (34 weeks/3 days) (1 week 1 day less growth than expected from 01/17/2022) (1 d ay less growth than expected from 02/09/2022) EDC: 07/03/2022 SURVEY IUP: Single PLACENTA: Posterior PREVIA: No Previa MIKE: 14.1 cm Normal CERVICAL LENGTH (transabdominal: norm > 3.0cm): 4.1 cm. Slightly limited, patient refused transvagina l exam for cervical length. BIOMETRY PRESENTATION: Vertex BPD: 8.43 cm 34 weeks / 0 days HC: 30.88 cm 34 weeks / 3 days AC: 31.35 cm 35 weeks / 2 days FL: 6.80 cm 35 weeks / 0 days ESTIMATED WEIGHT IN GRAMS: 2558 grams ESTIMATED WEIGHT IN LBS/OZ: 5 lbs. 10 oz. WEIGHT PERCENTAGE BASED ON ESTABLISHED DATES: 31.9% (versus 13% on 02/09/2022) HC/AC: 0.99 Normal FL/AC: 21.68 Normal HEART RATE: 139 bpm RHYTHM: Normal Procurement Agent notes:*Head measurements are limited due to head low in pelvis. IMPRESSION: Single live intrauterine with established gestational age of 35 weeks 4 days by previous da ting scan. Current ultrasound biometry is smaller at 34 weeks 3 days with appropriate interval growth compared to 02/09/2022. EFW 32% versus 13%, previously.
== END | disposition home or self-care (01) ==
LOC: RADUSWWP 12:27
PROVIDERS: ATTEND Obstetrics & Gynecology
DX: O36.63X0 Maternal care for excessive fetal growth, third trimester, not applicable or unspecified (principal); Z3A.35 35 weeks gestation of pregnancy
CPT/HCPCS: 76805

== ENCOUNTER 2022-08-31 06:10 | Day surgery (SDC) | payer OTHER ==
--- NOTE | 2022-08-30 19:40 | P.HPOB ---
History of Present Illness H&P Date: 08/30/22 Chief Complaint: family planning 32 year old presents for laparoscopic tubal ligation. Review of Systems All systems: negative Constitutional: Denies chills, Denies fever Eyes: denies blurred vision, denies pain Ears, nose, mouth and throat: Denies headache, Denies sore throat Cardiovascular: Denies chest pain, Denies shortness of breath Respiratory: Denies cough Gastrointestinal: Denies abdominal pain, Denies diarrhea, Denies nausea, Denies vomiting Genitourinary: Denies dysuria, Denies hematuria Musculoskeletal: Denies myalgias Integumentary: Denies pruritus, Denies rash Neurological: Denies numbness, Denies weakness Psychiatric: Denies anxiety, Denies depression Endocrine: Denies fatigue, Denies weight change Past Medical History Past Medical History: No Reported History Additional Past Medical History / Comment(s): Positive COVID Respiratory screen on May 05. 2020 History of Any Multi-Drug Resistant Organisms: None Reported Past Surgical History: Orthopedic Surgery Additional Past Surgical History / Comment(s): left shoulder arthroscopy, surg. for pilonidal cyst Past Anesthesia/Blood Transfusion Reactions: No Reported Reaction Smoking Status: Never smoker - Past Family History Mother Family Medical History: Cancer Medications and Allergies Home Medications Medication Instructions Recorded Confirmed Type Legendairy Supplement 1 tab PO DAILY 08/25/22 History Allergies Allergy/AdvReac Type Severity Reaction Status Date / Time latex Allergy Rash/Hives Verified 08/25/22 08:11 Exam Osteopathic Statement: *. No significant issues noted on an osteopathic structural exam other than those noted in the History and Physical/Consult. HEart: RRR Lungs: CTAB Abdomen: soft, nontender Extremeties: neg keith's Assessment and Plan (1) Family planning Status: Acute Code(s): Z30.09 - ENCOUNTER FOR OTH GENERAL CNSL AND ADVICE ON CONTRACEPTION SNOMED Code(s): 843435468 Plan: 1. laparoscopic tubal ligation
[~2022-08-31 06:10] MED LIST: DEXAMETHASONE SOD PHOSPHATE 4 MG/ML 1 ML VIAL IV ONE; HYDROmorphone 0.5 MG/0.5 ML SYRINGE IVP PRN; ONDANSETRON 4 MG/2 ML VIAL IVP ONE; Pre Op ABX Message 1 EACH MISC MISCELLANE ONE
[2022-08-31] MEDS: LACTATED RINGERS 1,000 ML IV SCH ×2 (06:30→08:29)
[2022-08-31] MEDS ORDERED: LIDOCAINE 2% INJ 20 MG/ML (2 ML VIAL) ONE (07:33)
[2022-08-31] MEDS ORDERED: fentaNYL (PF) 50 MCG/ML 2 ML AMP ONE (07:33)
[2022-08-31] MEDS ORDERED: PROPOFOL 10 MG/ML 20 ML VIAL IV ONE (07:33)
[2022-08-31] MEDS ORDERED: SUCCINYLCHOLINE CHLORIDE 200 MG/10 ML VIAL IV ONE (07:33)
[2022-08-31] MEDS ORDERED: KETOROLAC 15 MG/ML 1 ML VIAL ONE (07:33)
[2022-08-31] MEDS ORDERED: ROCURONIUM 10 MG/ML (5 ML VIAL) IV ONE (07:33)
[2022-08-31] MEDS ORDERED: NEOSTIGMINE 1 MG/ML 10 ML VIAL ONE (07:33)
[2022-08-31] MEDS ORDERED: MIDAZOLAM 2 MG/2 ML VIAL ONE (07:33)
[2022-08-31] MEDS ORDERED: GLYCOPYRROLATE 0.2 MG/ML 2 ML VIAL ONE (07:33)
[2022-08-31] MEDS ORDERED: BUPIVACAINE (PF) 0.25% 30 ML VIAL SQ ONE ×2 (07:54)
[2022-08-31 08:20] VITALS: RESP 16; TEMP 97.1
--- NOTE | 2022-08-31 08:31 | P.OP ---
Date of Procedure: 08/31/22 Preoperative Diagnosis: 1. Family planning Postoperative Diagnosis: 1. Family planning Procedure(s) Performed: Laparoscopic tubal ligation Anesthesia: MARGIE Surgeon: Nichole Arias Estimated Blood Loss (ml): 5 IV fluids (ml): 300 Urine output (ml): 20 Pathology: none sent Condition: stable Disposition: PACU Description of Procedure: Patient was taken to the operating room where general anesthesia was obtained without difficulty. She was prepped and draped in normal sterile fashion in the dorsal lithotomy position, legs placed in the Holden stirrups. Bladder drained of all urine. [place] speculum placed in the vagina and the anterior lip the cervix was grasped with single-tooth tenaculum. The uterus is sounded to 9 cm and the kroner manipulator was placed. Attention was then turned to the abdomen and gloves were changed. A 10 mm infraumbilical incision was made the scalpel and 10 mm optical trocar was placed under direct visualization. A 5 mm suprapubic Incision was made and a 5 mm optical trocar was placed under direct visualization. Survey of the pelvis revealed normal uterus tubes and ovaries. The left fallopian tube was grasped with a Kleppinger and fulgurated 2-3 cm on this side in the ampullar portion. The right fallopian tube was grasped with a Kleppinger and fulgurated 2-3 cm in the ampullar portion. All instruments were then removed from the abdomen and vagina. The 10 mm infraumbilical incision was closed with 0 Vicryl and the fascial layer and then 4-0 Vicryl in a subcuticular fashion. The 5 mm incision was closed with 4-0 Vicryl in a subcuticular fashion. Patient tolerated procedure well, sponge and instrument counts correct 2 and she was taken to recovery room in stable condition.
[2022-08-31 09:53] VITALS: BP 106/68; PULSE 61
== END 2022-08-31 10:16 | disposition home or self-care (01) ==
LOC: OR 06:10
PROVIDERS: ATTEND Obstetrics & Gynecology
DX: Z30.2 Encounter for sterilization (principal); Z86.16 Personal history of COVID-19; Z91.040 Latex allergy status
CPT/HCPCS: 81025; 58670; J2250; J0330; J1100; J2710; J2405; J3010; J1885; J2704; J2001

== ENCOUNTER → 2024-09-28 | Outpatient (CLI) | payer OTHER ==
--- NOTE | 2024-09-28 10:02 | XR ---
EXAMINATION TYPE: XR finger LT DATE OF EXAM: 09/28/2024 CLINICAL INDICATION: Female, 34 years old with history of S61.208S Unspecified open wound of finger, pain, cutting injury one month ago TECHNIQUE: Frontal, lateral and oblique images of the left thumb are obtained. COMPARISON: None. FINDINGS: There is no acute fracture/dislocation evident in the left thumb. No suspicious bony destr uction. The joint spaces in the left thumb appear within normal limits. The overlying soft tissue ap pears unremarkable. IMPRESSION: As above. [facility], , 09/28/2024 10:00 AM
== END | disposition home or self-care (01) ==
LOC: RADXRMAIN 09:42
PROVIDERS: ATTEND Emergency Medicine
DX: S61.20 Unspecified open wound of other finger without damage to nail (principal); X58.XXXS Exposure to other specified factors, sequela